=== PATIENT | female | born 1985 | race American Indian/Alaskan Native ===

== ENCOUNTER 2016-12-27 15:24 | Outpatient (CLI) | payer MEDICAID ==
[2016-12-27] MEDS ORDERED: LACTATED RINGERS 500 ML IV ONE (16:24)
== END 2016-12-27 17:22 | disposition home or self-care (01) ==
LOC: TRG 15:24
PROVIDERS: ATTEND Obstetrics & Gynecology
DX: O47.02 False labor before 37 completed weeks of gestation, second trimester (principal); Z3A.24 24 weeks gestation of pregnancy
CPT/HCPCS: 59025; J7120

== ENCOUNTER 2017-03-28 07:14 | Outpatient (CLI) | payer MEDICAID ==
[2017-03-28 07:42] VITALS: BP 120/70
[2017-03-28 07:52] LABS: Bilirubin,Urine NEG (Negative); Blood,Urine NEG (Negative); Ketones,Urine TR mg/dL (Negative); Leukocyte Esterase,Urine NEG (Negative); Mucus,Urine 1+ /HPF; Nitrite,Urine NEG (Negative); Urobilinogen,Urine < 2.0 mg/dL (<2.0)
[2017-03-28] MEDS ORDERED: LACTATED RINGERS 1,000 ML ONE (07:55)
[2017-03-28] MEDS ORDERED: PHENERGAN PO ONE (08:00)
[2017-03-28] MEDS ORDERED: MORPHINE IV ONE ×3 (08:15→09:00)
[2017-03-28] MEDS ORDERED: LACTATED RINGERS 1,000 ML IV ONE (09:00)
== END 2017-03-28 10:00 | disposition home or self-care (01) ==
LOC: TRG 07:14
PROVIDERS: ATTEND Obstetrics & Gynecology
DX: O62.9 Abnormality of forces of labor, unspecified (principal); Z3A.37 37 weeks gestation of pregnancy
CPT/HCPCS: 59025; 81001; 96360; 96374; J2270; J7120; Q0169